=== PATIENT | male | born 1970 | race Caucasian/White ===

== ENCOUNTER 2023-08-10 18:21 | Emergency (ER) | payer OTHER ==
[2023-08-10 18:26] VITALS: BP 137/92; PULSE 89; RESP 18; TEMP 98.6; BMI 31.7
== END 2023-08-10 19:04 | disposition home or self-care (01) ==
LOC: JERFT 18:21
DX: H10.33 Unspecified acute conjunctivitis, bilateral (principal); H57.89 Other specified disorders of eye and adnexa
CPT/HCPCS: 99283-25